=== PATIENT | female | born 1995 | race Caucasian/White ===

== ENCOUNTER → 2024-01-28 | Outpatient (CLI) | payer OTHER ==
[2024-01-28 13:54] LABS: ALBUMIN 3.6 g/dL (3.5-5.0); BILIRUBIN,TOTAL 0.4 mg/dL (0.2-1.2); CALCIUM 9.7 mg/dL (8.4-10.2); CHOLESTEROL RISK RATIO 5.5; CREATININE, serum 0.67 mg/dL (0.57-1.11); POTASSIUM 4.1 mEq/L (3.5-4.5); TOTAL PROTEIN 7.7 g/dl (6.2-8.1)
[2024-01-28 14:13] LABS: TSH w REFLEX 1.978 uIU/mL (0.350-4.940)
[2024-01-29 00:41] LABS: INSULIN 16 uIU/mL (2-23)
== END ==
LOC: COL.LAB 12:49
PROVIDERS: Physician Assistant
DX: Z13.228 Encounter for screening for other metabolic disorders (principal)